=== PATIENT | female | born 1975 | race Caucasian/White ===

== ENCOUNTER 2024-07-17 10:32 | Outpatient (OUT) | payer OTHER, SELFPAY ==
--- NOTE | 2024-07-17 | XR_ITS ---
The [address] [address] Patient Name: SHELLEY MORSE MRN: [id number] date: 1975 Sex: F Assigned Patient Location: Current Patient Location: Accession/Order Number: [id number] Exam Date: 07/17/2024 10:33 Report Date: 07/18/2024 05:31 At the request of: KARMA LÓPEZ Procedure: XR foot RT min 3V PROCEDURE: XR foot RT min 3V HISTORY: RIGHT FOOT PAIN ; chronic painful callus plantar distal fourth metatarsal region COMPARISON: None. FINDINGS: BONES:No fracture, dislocation, bone lesion. Moderate degenerative enthesopathic spurring of the calcaneus. SOFT TISSUES:No visible soft tissue swelling. EFFUSION:None visible. OTHER: Negative. XR/XR foot RT min 3V IMPRESSION: 1. No abnormal or suspicious findings to account for patient's symptoms. 2. No significant degenerative joint disease. Electronically authenticated by: ANTONIO MORALES Date: 07/18/2024 05:31
== END 2024-07-17 10:33 | disposition home or self-care (01) ==
PROVIDERS: PCP Family Medicine; Visit Provider Podiatrist Foot & Ankle Surgery
DX: M79.671 Pain in right foot (principal)
CPT/HCPCS: 73630